=== PATIENT | male | born 1975 | race Caucasian/White ===

== ENCOUNTER 2020-07-18 15:47 | Inpatient (IN) ==
[2020-07-18] MEDS ORDERED: Ondansetron 4 MG/2 ML VIAL IVP PRN (20:00)
[2020-07-18] MEDS ORDERED: Naloxone 0.4 MG/ML INJ IVP PRN (20:00)
[2020-07-18] MEDS: *HR* Promethazine 25 MG/ML VIAL IM PRN (21:13)
[2020-07-18] MEDS: Ringers Solution, Lactated 1,000 ML IVC SCH (23:02)
[2020-07-19] MEDS ORDERED: Metoclopramide 10 MG/2 ML VIAL IVP ONE ×2 (00:40→02:47)
[2020-07-19] MEDS ORDERED: *HR* HYDROmorphone (PF) 1 MG/ML SYRINGE IVP ONE (00:40)
[2020-07-19] MEDS: Ringers Solution, Lactated 1,000 ML IVC SCH ×6 (02:37→20:42)
[2020-07-19] MEDS ORDERED: *HR* HYDROmorphone 20 MG/20 ML PCA IVC PRN (02:46)
[2020-07-19 06:38] LABS: Eosinophils % 0.4 %; Immature Granulocytes % 0.3 % (0-4)
[2020-07-19 06:41] LABS: Basophils # 0.1 K/mcL (0.0-0.2); Basophils % 0.9 %; Hemoglobin 10.8 g/dL (12.9-16.9); Lymphocytes # 1.2 K/mcL (0.6-4.6); Lymphocytes % 17.7 %; Mean Corpuscular HGB Conc 33.8 g/dL (31.6-35.5); Mean Corpuscular Hemoglobin 26.5 pg (28.0-33.3); Mean Corpuscular Volume 78.6 fL (83.0-100.0); Mean Platelet Volume 9.6 fL (9.4-12.4); Monocytes # 0.5 K/mcL (0.0-1.3); Monocytes % 7.8 %; Platelet Count 293 K/mcL (140-400); Red Blood Count 4.07 M/mcL (4.19-5.50); Red Cell Distribution Width 25.8 % (11.5-14.5); Segmented Neutrophils % 72.9 %; White Blood Count 6.8 K/mcL (4.3-11.1)
[2020-07-19 06:44] LABS: Prothrombin Time 22.4 Seconds (9.4-12.1)
[2020-07-19 07:07] LABS: Alanine Aminotransferase 6 Units/L (7-52); Albumin/Globulin Ratio 0.9 (1.1-2.2); Alkaline Phosphatase 106 Units/L (34-104); Aspartate Amino Transferase 13 Units/L (13-39); BUN/Creatinine Ratio 16 (6-26); Bilirubin,Total 0.5 mg/dL (0.3-1.0); Blood Urea Nitrogen 9 mg/dL (6-20); Calcium 8.6 mg/dL (8.6-10.3); Carbon Dioxide 27 mEq/L (23-29); Chloride 102 mEq/L (98-107); Chol/HDL Ratio 4.4 (0-4.9); Cholesterol 75 mg/dL (< 200); Globulin 3.3 g/dL (2.4-3.5); Glucose 131 mg/dL (70-105); HDL Cholesterol 17 mg/dL (40-59); LDL Cholesterol,Calculated 44 mg/dL (< 100); Magnesium 1.7 mg/dL (1.6-2.6); Osmolality,Calculated 294 (280-300); Phosphorous 3.1 mg/dL (2.7-4.5); Potassium 3.1 mEq/L (3.5-5.1); Sodium 142 mEq/L (136-145); Total Protein 6.3 g/dL (6.4-8.9); Triglycerides 69 mg/dL (< 150); eGFR For African Americans > 60 (> 60); eGFR For Non-African Americans > 60 (> 60)
[2020-07-19] MEDS: *HR* Promethazine 25 MG/ML VIAL IM PRN ×2 (08:27→22:37)
[2020-07-19 10:56] LABS: Hematocrit 30.4 % (37.5-50.1); Hemoglobin 10.4 g/dL (12.9-16.9)
[2020-07-19] MEDS: Pantoprazole 40 MG VIAL IVP SCH ×2 (11:17→17:32)
[2020-07-19] MEDS: Ondansetron 4 MG/2 ML VIAL IVP SCH ×3 (11:18→23:26)
[2020-07-19] MEDS: Metoclopramide 10 MG/2 ML VIAL IVP PRN ×2 (13:45→19:53)
[2020-07-19] MEDS ORDERED: Ipratropium/Albuterol Neb 3 ML IH PRN (13:55)
[2020-07-19 17:12] LABS: Hematocrit 32.6 % (37.5-50.1); Hemoglobin 10.9 g/dL (12.9-16.9)
[2020-07-19 22:47] LABS: Hematocrit 31.3 % (37.5-50.1); Hemoglobin 10.2 g/dL (12.9-16.9)
[2020-07-19] MEDS ORDERED: *HR* LORazepam 2 MG/ML VIAL IVP ONE (23:58)
[2020-07-20 02:19] LABS: Basophils # 0.1 K/mcL (0.0-0.2); Basophils % 0.6 %; Eosinophils # 0.1 K/mcL (0.0-0.6); Hematocrit 27.4 % (37.5-50.1); Immature Granulocytes % 0.4 % (0-4); Lymphocytes # 2.4 K/mcL (0.6-4.6); Lymphocytes % 25.6 %; Mean Corpuscular HGB Conc 33.2 g/dL (31.6-35.5); Mean Corpuscular Hemoglobin 26.4 pg (28.0-33.3); Mean Corpuscular Volume 79.4 fL (83.0-100.0); Mean Platelet Volume 9.4 fL (9.4-12.4); Monocytes # 0.8 K/mcL (0.0-1.3); Monocytes % 8.1 %; Platelet Count 242 K/mcL (140-400); Red Blood Count 3.45 M/mcL (4.19-5.50); Red Cell Distribution Width 25.6 % (11.5-14.5); Segmented Neutrophils % 64.3 %; White Blood Count 9.4 K/mcL (4.3-11.1)
[2020-07-20 02:22] LABS: INR 2.2; Prothrombin Time 25.2 Seconds (9.4-12.1)
[2020-07-20 02:23] LABS: Hemoglobin 9.1 g/dL (12.9-16.9)
[2020-07-20] MEDS: Ringers Solution, Lactated 1,000 ML IVC SCH ×3 (02:24→11:16)
[2020-07-20 02:40] LABS: Alanine Aminotransferase 5 Units/L (7-52); Albumin 2.5 g/dL (3.5-5.7); Alkaline Phosphatase 77 Units/L (34-104); Aspartate Amino Transferase 12 Units/L (13-39); BUN/Creatinine Ratio 15 (6-26); Bilirubin,Total 0.4 mg/dL (0.3-1.0); Blood Urea Nitrogen 6 mg/dL (6-20); Calcium 7.9 mg/dL (8.6-10.3); Carbon Dioxide 24 mEq/L (23-29); Chloride 106 mEq/L (98-107); Globulin 2.6 g/dL (2.4-3.5); Glucose 103 mg/dL (70-105); Lipase 346 Units/L (11-82); Magnesium 1.4 mg/dL (1.6-2.6); Osmolality,Calculated 286 (280-300); Potassium 3.3 mEq/L (3.5-5.1); Sodium 139 mEq/L (136-145); Total Protein 5.1 g/dL (6.4-8.9); eGFR For African Americans > 60 (> 60); eGFR For Non-African Americans > 60 (> 60)
[2020-07-20 02:44] LABS: Anisocytosis 1+ (Not Present); Hypochromasia Present (Not Present); Platelet Estimate Normal (Normal); Poikilocytosis 1+ (Not Present); Target Cells 2+ (Not Present)
[2020-07-20] MEDS: Metoclopramide 10 MG/2 ML VIAL IVP PRN ×2 (04:49→19:47)
[2020-07-20] MEDS: Pantoprazole 40 MG VIAL IVP SCH ×2 (06:14→17:39)
[2020-07-20] MEDS: Ondansetron 4 MG/2 ML VIAL IVP SCH ×2 (07:38→17:40)
[2020-07-20] MEDS ORDERED: Potassium Phosphate 44 MEQ in 0.9 % Sodium Chloride 250 ML IVPB ONE (10:18)
[2020-07-20] MEDS ORDERED: *HR* HYDROmorphone (PF) 1 MG/ML SYRINGE IVP ONE ×2 (12:20→21:21)
[2020-07-20] MEDS: *HR* Promethazine 25 MG/ML VIAL IM PRN (14:40)
[2020-07-20 16:40] LABS: % Iron Saturation 42 % (20-55); Iron 64 mcg/dL (65-175); Transferrin 108 mg/dL (203-362)
[2020-07-20 16:57] LABS: Ferritin 221 ng/mL (20-250)
[2020-07-20 17:14] LABS: Folate 1.2 ng/mL (3.0-16.0)
[2020-07-21] MEDS: Ondansetron 4 MG/2 ML VIAL IVP SCH ×4 (00:13→23:47)
[2020-07-21 05:58] LABS: Basophils # 0.1 K/mcL (0.0-0.2); Basophils % 0.8 %; Eosinophils # 0.4 K/mcL (0.0-0.6); Eosinophils % 6.5 %; Hematocrit 26.3 % (37.5-50.1); Hemoglobin 8.7 g/dL (12.9-16.9); Immature Granulocytes % 0.3 % (0-4); Lymphocytes # 1.9 K/mcL (0.6-4.6); Lymphocytes % 30.6 %; Mean Corpuscular HGB Conc 33.1 g/dL (31.6-35.5); Mean Corpuscular Hemoglobin 25.8 pg (28.0-33.3); Mean Platelet Volume 8.9 fL (9.4-12.4); Monocytes # 0.4 K/mcL (0.0-1.3); Monocytes % 6.7 %; Neutrophils # 3.4 K/mcL (1.6-8.9); Platelet Count 201 K/mcL (140-400); Red Blood Count 3.37 M/mcL (4.19-5.50); Red Cell Distribution Width 25.3 % (11.5-14.5); Segmented Neutrophils % 55.1 %; White Blood Count 6.1 K/mcL (4.3-11.1)
[2020-07-21 06:20] LABS: Alanine Aminotransferase 5 Units/L (7-52); Albumin 2.4 g/dL (3.5-5.7); Alkaline Phosphatase 82 Units/L (34-104); Aspartate Amino Transferase 13 Units/L (13-39); BUN/Creatinine Ratio 13 (6-26); Bilirubin,Total 0.5 mg/dL (0.3-1.0); Blood Urea Nitrogen 5 mg/dL (6-20); Calcium 7.5 mg/dL (8.6-10.3); Carbon Dioxide 23 mEq/L (23-29); Chloride 103 mEq/L (98-107); Globulin 2.5 g/dL (2.4-3.5); Glucose 91 mg/dL (70-105); Osmolality,Calculated 279 (280-300); Potassium 3.2 mEq/L (3.5-5.1); Sodium 136 mEq/L (136-145); Total Protein 4.9 g/dL (6.4-8.9); eGFR For African Americans > 60 (> 60); eGFR For Non-African Americans > 60 (> 60)
[2020-07-21 08:28] LABS: Magnesium 1.7 mg/dL (1.6-2.6); Phosphorous 2.9 mg/dL (2.7-4.5)
[2020-07-21] MEDS: Pantoprazole 40 MG VIAL IVP SCH ×2 (12:06→16:48)
[2020-07-21 13:23] LABS: Influenza A PCR Negative (Negative); Influenza B PCR Negative (Negative); Resp. Syncytial Virus PCR Negative (Negative)
[2020-07-21 13:27] LABS: SARS-CoV-2 by PCR (In House) Negative (Negative)
[2020-07-21] MEDS ORDERED: Potassium Chloride 40 MEQ, Lidocaine 1% 2 ML in 0.9 % Sodium Chloride 500 ML IVPB ONE (13:32)
[2020-07-21] MEDS ORDERED: Lidocaine -MPF 2% 2 ML VIAL ONE (14:01)
[2020-07-21] MEDS ORDERED: *HR* Propofol 200 MG/20 ML VIAL IVP ONE ×3 (14:01→14:24)
[2020-07-21] MEDS: Metoclopramide 10 MG/2 ML VIAL IVP PRN (14:47)
[2020-07-21] MEDS: Ringers Solution, Lactated 1,000 ML IVC SCH ×4 (17:05→23:38)
[2020-07-21] MEDS: *HR* HYDROmorphone 2 MG/ML SYRINGE IVP PRN (18:24)
[2020-07-21] MEDS: *HR* Promethazine 25 MG/ML VIAL IM PRN (21:59)
[2020-07-22] MEDS: Ondansetron 4 MG/2 ML VIAL IVP SCH ×4 (00:45→23:19)
[2020-07-22] MEDS ORDERED: *HR* Propofol 500 MG/50 ML BOTTLE IVP ONE (02:24)
[2020-07-22] MEDS ORDERED: Lidocaine -MPF 2% 5 ML VIAL SQ ONE (02:24)
[2020-07-22] MEDS: Metoclopramide 10 MG/2 ML VIAL IVP PRN ×2 (03:11→20:33)
[2020-07-22] MEDS: *HR* HYDROmorphone 2 MG/ML SYRINGE IVP PRN ×3 (03:15→23:33)
[2020-07-22] MEDS: Ringers Solution, Lactated 1,000 ML IVC SCH ×3 (03:16→23:19)
[2020-07-22] MEDS: Pantoprazole 40 MG VIAL IVP SCH ×2 (05:18→18:10)
[2020-07-22 05:56] LABS: Basophils # 0.1 K/mcL (0.0-0.2); Basophils % 0.8 %; Eosinophils # 0.1 K/mcL (0.0-0.6); Hematocrit 27.4 % (37.5-50.1); Hemoglobin 9.2 g/dL (12.9-16.9); Immature Granulocytes % 0.2 % (0-4); Lymphocytes # 1.6 K/mcL (0.6-4.6); Lymphocytes % 25.6 %; Mean Corpuscular HGB Conc 33.6 g/dL (31.6-35.5); Mean Corpuscular Hemoglobin 26.5 pg (28.0-33.3); Mean Platelet Volume 9.2 fL (9.4-12.4); Monocytes # 0.5 K/mcL (0.0-1.3); Monocytes % 7.7 %; Neutrophils # 4.1 K/mcL (1.6-8.9); Platelet Count 244 K/mcL (140-400); Red Blood Count 3.47 M/mcL (4.19-5.50); Red Cell Distribution Width 26.1 % (11.5-14.5); Segmented Neutrophils % 63.7 %; White Blood Count 6.4 K/mcL (4.3-11.1)
[2020-07-22 06:20] LABS: Alanine Aminotransferase 5 Units/L (7-52); Albumin 2.4 g/dL (3.5-5.7); Alkaline Phosphatase 79 Units/L (34-104); Aspartate Amino Transferase 13 Units/L (13-39); BUN/Creatinine Ratio 11 (6-26); Bilirubin,Total 0.6 mg/dL (0.3-1.0); Blood Urea Nitrogen 4 mg/dL (6-20); Calcium 7.6 mg/dL (8.6-10.3); Carbon Dioxide 23 mEq/L (23-29); Chloride 103 mEq/L (98-107); Globulin 2.4 g/dL (2.4-3.5); Glucose 90 mg/dL (70-105); Magnesium 1.5 mg/dL (1.6-2.6); Osmolality,Calculated 278 (280-300); Phosphorous 2.7 mg/dL (2.7-4.5); Potassium 3.5 mEq/L (3.5-5.1); Sodium 136 mEq/L (136-145); Total Protein 4.8 g/dL (6.4-8.9); eGFR For African Americans > 60 (> 60); eGFR For Non-African Americans > 60 (> 60)
[2020-07-22 06:25] LABS: Anisocytosis 1+ (Not Present); Platelet Estimate Normal (Normal); Poikilocytosis 1+ (Not Present); Smudge Cells Present (Not Present)
[2020-07-22 06:26] LABS: Target Cells 1+ (Not Present)
[2020-07-22] MEDS ORDERED: Folic Acid 1 MG in 0.9 % Sodium Chloride 50 ML IVPB ONE (12:32)
[2020-07-22] MEDS ORDERED: Ondansetron 4 MG/2 ML VIAL ONE (12:39)
[2020-07-22] MEDS ORDERED: Dexamethasone 4 MG/ML VIAL ONE (12:39)
[2020-07-22] MEDS ORDERED: Lidocaine -MPF 4% 5 ML AMPUL ONE (12:45)
[2020-07-22] MEDS ORDERED: *HR* FentaNYL (PF) 100 MCG/2 ML VIAL ONE ×2 (12:45→13:21)
[2020-07-22] MEDS ORDERED: *HR* Rocuronium Bromide 50 MG/5 ML VIAL ONE (12:48)
[2020-07-22] MEDS: Iron Sucrose Complex 250 MG in 0.9 % Sodium Chloride 250 ML IVPB SCH (14:26)
[2020-07-22] MEDS ORDERED: Chloraseptic Spray 177 ML BOTTLE MM PRN (23:40)
[2020-07-23] MEDS: *HR* Promethazine 25 MG/ML VIAL IM PRN ×3 (00:50→20:33)
[2020-07-23] MEDS: Metoclopramide 10 MG/2 ML VIAL IVP PRN ×3 (02:45→18:40)
[2020-07-23] MEDS: *HR* HYDROmorphone 2 MG/ML SYRINGE IVP PRN ×6 (03:20→23:04)
[2020-07-23] MEDS: Ringers Solution, Lactated 1,000 ML IVC SCH ×3 (03:21→10:43)
[2020-07-23] MEDS: Pantoprazole 40 MG VIAL IVP SCH ×2 (05:12→16:44)
[2020-07-23 05:39] LABS: Basophils % 0.4 %
[2020-07-23 05:41] LABS: Eosinophils % 0.1 %; Hematocrit 36.9 % (37.5-50.1); Hemoglobin 12.3 g/dL (12.9-16.9); Immature Granulocytes % 0.3 % (0-4); Immature Platelets 3.6 % (1.1-6.1); Lymphocytes # 1.5 K/mcL (0.6-4.6); Lymphocytes % 18.9 %; Mean Corpuscular HGB Conc 33.3 g/dL (31.6-35.5); Mean Corpuscular Hemoglobin 26.4 pg (28.0-33.3); Mean Corpuscular Volume 79.2 fL (83.0-100.0); Mean Platelet Volume 9.4 fL (9.4-12.4); Monocytes # 0.4 K/mcL (0.0-1.3); Monocytes % 4.5 %; Platelet Count 346 K/mcL (140-400); Red Blood Count 4.66 M/mcL (4.19-5.50); Red Cell Distribution Width 26.5 % (11.5-14.5); Segmented Neutrophils % 75.8 %; White Blood Count 7.9 K/mcL (4.3-11.1)
[2020-07-23 05:58] LABS: Magnesium 1.7 mg/dL (1.6-2.6); Phosphorous 2.8 mg/dL (2.7-4.5)
[2020-07-23 05:59] LABS: Alanine Aminotransferase 5 Units/L (7-52); Albumin 2.8 g/dL (3.5-5.7); Albumin/Globulin Ratio 0.9 (1.1-2.2); Alkaline Phosphatase 92 Units/L (34-104); Aspartate Amino Transferase 14 Units/L (13-39); BUN/Creatinine Ratio 16 (6-26); Bilirubin,Total 0.5 mg/dL (0.3-1.0); Blood Urea Nitrogen 7 mg/dL (6-20); Carbon Dioxide 24 mEq/L (23-29); Chloride 100 mEq/L (98-107); Glucose 127 mg/dL (70-105); Osmolality,Calculated 282 (280-300); Potassium 3.8 mEq/L (3.5-5.1); Sodium 136 mEq/L (136-145); Total Protein 5.8 g/dL (6.4-8.9); eGFR For African Americans > 60 (> 60); eGFR For Non-African Americans > 60 (> 60)
[2020-07-23 06:05] LABS: Anisocytosis 1+ (Not Present); Hypochromasia Present (Not Present); Platelet Estimate Normal (Normal); Target Cells 1+ (Not Present)
[2020-07-23] MEDS: Ondansetron 4 MG/2 ML VIAL IVP SCH ×2 (07:17→16:44)
[2020-07-23] MEDS ORDERED: Lidocaine -MPF 2% 2 ML VIAL ONE ×2 (09:37→10:01)
[2020-07-23] MEDS ORDERED: Isovue-370 500 ML BOTTLE IVP ONE (10:33)
[2020-07-23] MEDS ORDERED: D5% in Water 1,000 ML IVC SCH (10:45)
[2020-07-23] MEDS: Iron Sucrose Complex 250 MG in 0.9 % Sodium Chloride 250 ML IVPB SCH ×2 (17:13→23:03)
[2020-07-23] MEDS: D5% in Lactated Ringers 1,000 ML IVC SCH (20:29)
[2020-07-23] MEDS ORDERED: Acetaminophen IV 1,000 MG/100 ML BAG IVPB ONE (22:02)
[2020-07-24] MEDS: *HR* HYDROmorphone 2 MG/ML SYRINGE IVP PRN ×4 (02:47→17:28)
[2020-07-24] MEDS: Ondansetron 4 MG/2 ML VIAL IVP SCH ×3 (02:47→15:16)
[2020-07-24 04:02] LABS: Mean Platelet Volume 9.4 fL (9.4-12.4)
[2020-07-24 04:04] LABS: Hematocrit 29.2 % (37.5-50.1); Hemoglobin 9.9 g/dL (12.9-16.9); Immature Platelets 2.6 % (1.1-6.1); Mean Corpuscular HGB Conc 33.9 g/dL (31.6-35.5); Mean Corpuscular Hemoglobin 26.5 pg (28.0-33.3); Mean Corpuscular Volume 78.1 fL (83.0-100.0); Monocytes # 0.1 K/mcL (0.0-1.3); Platelet Count 241 K/mcL (140-400); Red Blood Count 3.74 M/mcL (4.19-5.50); Red Cell Distribution Width 25.8 % (11.5-14.5); White Blood Count 2.8 K/mcL (4.3-11.1)
[2020-07-24 04:18] LABS: Magnesium 1.3 mg/dL (1.6-2.6); Phosphorous 2.1 mg/dL (2.7-4.5)
[2020-07-24 04:22] LABS: Alanine Aminotransferase 5 Units/L (7-52); Albumin 2.1 g/dL (3.5-5.7); Albumin/Globulin Ratio 0.8 (1.1-2.2); Alkaline Phosphatase 62 Units/L (34-104); Aspartate Amino Transferase 11 Units/L (13-39); BUN/Creatinine Ratio 23 (6-26); Bilirubin,Total 0.5 mg/dL (0.3-1.0); Blood Urea Nitrogen 9 mg/dL (6-20); Calcium 7.5 mg/dL (8.6-10.3); Carbon Dioxide 29 mEq/L (23-29); Chloride 100 mEq/L (98-107); Globulin 2.5 g/dL (2.4-3.5); Glucose 170 mg/dL (70-105); Osmolality,Calculated 279 (280-300); Potassium 2.8 mEq/L (3.5-5.1); Sodium 133 mEq/L (136-145); Total Protein 4.6 g/dL (6.4-8.9); eGFR For African Americans > 60 (> 60); eGFR For Non-African Americans > 60 (> 60)
[2020-07-24] MEDS: D5% in Lactated Ringers 1,000 ML IVC SCH ×2 (04:22→08:56)
[2020-07-24] MEDS: Pantoprazole 40 MG VIAL IVP SCH ×2 (04:45→17:28)
[2020-07-24 05:14] LABS: Anisocytosis 2+ (Not Present); Eosinophils # 0.1 K/mcL (0.0-0.6); Lymphocytes # 0.3 K/mcL (0.6-4.6); Macrocytosis Present (Not Present); Platelet Estimate Normal (Normal); Poikilocytosis 1+ (Not Present); Reactive Lymphocytes Present (Not Present); Smudge Cells Present (Not Present); Target Cells 1+ (Not Present); Toxic Granulation Present (Not Present)
[2020-07-24] MEDS ORDERED: Potassium Phosphate 44 MEQ in 0.9 % Sodium Chloride 250 ML IVPB ONE (07:57)
[2020-07-24 10:12] LABS: Adenovirus Not Detected (Not Detect); Bordetella Pertussis Not Detected (Not Detect); Chlamydophila pneumoniae Not Detected (Not Detect); Coronavirus 229E Not Detected (Not Detect); Coronavirus HKU1 Not Detected (Not Detect); Coronavirus NL63 Not Detected (Not Detect); Coronavirus OC43 Not Detected (Not Detect); Human Metapneumovirus Not Detected (Not Detect); Human Rhinovirus/Enterovirus Not Detected (Not Detect); Influenza A Subtype 2009 H1 Not Detected (Not Detect); Influenza B Not Detected (Not Detect); Parainfluenza Virus 1 Not Detected (Not Detect); Parainfluenza Virus 2 Not Detected (Not Detect); Parainfluenza Virus 3 Not Detected (Not Detect); Parainfluenza Virus 4 Not Detected (Not Detect); Respiratory Syncytial Virus Not Detected (Not Detect); SARS-CoV-2 Not Detected (Not Detect)
[2020-07-24 10:13] LABS: Mycoplasma pneumoniae Not Detected (Not Detect)
[2020-07-24] MEDS ORDERED: 0.9 % Sodium Chloride 1,000 ML IVC ONE ×2 (12:15→12:17)
[2020-07-24] MEDS: Metoclopramide 10 MG/2 ML VIAL IVP PRN (13:41)
[2020-07-24] MEDS: Cefepime HCl 2,000 MG in Water for inj. (sterile) 20 ML IVP SCH (15:16)
[2020-07-24] MEDS: MetroNIDAZOLE 500 MG/100 ML 500 MG/100 ML BAG IVPB SCH ×2 (15:17→16:21)
[2020-07-24] MEDS: *HR* Promethazine 25 MG/ML VIAL IM PRN (20:41)
[2020-07-24] MEDS: Iron Sucrose Complex 250 MG in 0.9 % Sodium Chloride 250 ML IVPB SCH (21:50)
[2020-07-24 22:49] VITALS: BP 106/74
[2020-07-25] MEDS: Ondansetron 4 MG/2 ML VIAL IVP SCH (00:09)
[2020-07-25] MEDS: MetroNIDAZOLE 500 MG/100 ML 500 MG/100 ML BAG IVPB SCH (00:09)
[2020-07-25] MEDS: Cefepime HCl 2,000 MG in Water for inj. (sterile) 20 ML IVP SCH (00:09)
== END 2020-07-25 02:25 | disposition short-term general hospital (02) | DRG 438 ==
LOC: 3ANU → SUATTDRO 17:59
PROVIDERS: ADMIT Internal Medicine; ATTEND Family Medicine